=== PATIENT | male | born 1945 | race Caucasian/White ===

== ENCOUNTER 2021-07-10 23:55 | Emergency (ER) | payer BC, MEDICARE, SELFPAY ==
[2021-07-10 23:58] VITALS: BP 151/106; PULSE 80; RESP 18; TEMP 36.7; O2SAT 97
[2021-07-11] MEDS: Lidocaine 1.5 % Pres-Free W/EPI 1/200,000 30 ML VIAL (00:09)
--- NOTE | 2021-07-11 00:47 | W.ED.GENAD ---
Discharge Plan Disposition Patient Disposition: HOME Condition: Good Discharge Details Clinical Impression: Laceration of right lower leg ED Provider: Christofer Bledsoe Home Meds and New Rx's Prescriptions: New cephalexin 500 mg capsule 500 mg PO QID 7 Days Qty: 28 0RF Discharge Instructions Instructions: Laceration (ED) Additional Instructions: Please leave the dressing on and change every 12 hours, in 48 hours you may clean the wound at least twice a day with soap and water. Do not directly soak the area. Watch for any signs of infection and return if any increasing redness, swelling, pain, drainage. Please return in 7 to 10 days to have the wound reassessed for potential suture removal. Please keep the leg elevated, keep compression stockings on, and do your best to decrease any swelling or edema. Please take the antibiotic as directed. You have been given a small bottle, but also a prescription for home use to prevent infection. If you notice any worsening of your symptoms, or any new symptoms such as vomiting, diarrhea, fever, chills, shortness of breath, chest pain, numbness, weakness, or fainting , please return immediately to the emergency department for reevaluation. Please follow up with your primary care provider as soon as possible for reassessment and reevaluation. As always, it was a pleasure participating in your medical care today. Medical Decision Making This is a 76-year-old male with a past medical history of atrial fibrillation on Eliquis, diabetes mellitus, hypertension, who presents today for laceration. Patient states about an hour or so ago he hit his right leg on a piece of furniture, causing a laceration. He notes that his skin has been quite frail over the last year or so. The area was bandaged and he was brought in for further assessment. He denies any severe pain. He denies any new numbness or tingling. Bleeding was controlled at home. No fever or chills. No other complaints. The area demonstrated superficial laceration with no involvement of the deep muscle, tendon, or bone. No foreign bodies are present. The area was cleansed with chlorhexidine and copious amounts of normal saline. The area was sutured with a single horizontal mattress suture, and 11 simple interrupted sutures. Small amount of Dermabond was applied to each knot. Patient tolerated this well. Discussed the importance of keeping the leg elevated, decreasing swelling, following up closely for wound reassessment. We will give Keflex here and prescription for home to prevent infection for this diabetic leg. I have extensively reviewed the treatment plan and discharge instructions with the patient and their family. I have addressed all patient concerns at this time. The patient and family was made aware of what symptoms to monitor for that would warrant a return to the emergency department. Discussed the plan with the patient and family, they demonstrate verbal understanding and agreement with our assessment and plan at this time. The documentation in this chart was dictated using [employer] dictation software. Please excuse any dictation errors. HPI General Date/Time Provider Initiated Documentation: 07/10/21 23:57. HPI Narrative: This is a 76-year-old male with a past medical history of atrial fibrillation on Eliquis, diabetes mellitus, hypertension, who presents today for laceration. Patient states about an hour or so ago he hit his right leg on a piece of furniture, causing a laceration. He notes that his skin has been quite frail over the last year or so. The area was bandaged and he was brought in for further assessment. He denies any severe pain. He denies any new numbness or tingling. Bleeding was controlled at home. No fever or chills. No other complaints. Related Data Home Medications Medication Instructions Recorded Confirmed cephalexin 500 mg capsule 500 mg PO QID 7 days #28 caps 07/11/21 Previous Rx's Medication Instructions Recorded cephalexin 500 mg capsule 500 mg PO QID 7 days #28 caps 07/11/21 Allergies Allergy/AdvReac Type Severity Reaction Status Date / Time No Known Allergies Allergy Unverified 07/11/21 00:05 General Stated Complaint: Laceration LEYLA: 4 Review of Systems All systems reviewed & are unremarkable except as noted in HPI and below PFSH All Active Problems Laceration of right lower leg (Acute) Social History Smoking/Tobacco Use Status: Current-Occasional Tobacco Type: cigars Smoking risk assessment performed?: Yes Alcohol Intake: never Drug use: Never Substance use type: does not use Do you feel safe at home: Yes Do you feel safe in your relationship?: Yes Exam Narrative Exam Narrative: 1.Const: Well-nourished, Well-developed, appearing stated age 2.Eyes: PERRL, no conjunctival injection, and symmetrical lids. 3.ENT: Atraumatic external nose and ears. Moist MM. Neck: Symmetric, trachea midline, No thyromegaly. 4.CVS: +S1/S2, No murmurs or gallops. Peripheral pulses 2+ and equal in all extremities. Brisk capillary refill in all extremities. 5.RESP: Unlabored respiratory effort. Clear to auscultation bilaterally. No wheezes rales or rhonchi 6.GI: Soft, Nontender/Nondistended, No hepatosplenomegaly. No guarding or rebound. 7.MSK: Normocephalic, Extremities w/o deformity or ttp No cyanosis or clubbing, Normal movement of all extremities. Good plantar and dorsiflexion of the right foot and toes. Dorsalis pedis and posterior tibial pulses bilaterally. 8.Skin: Warm, Dry. Patient demonstrates an L-shaped laceration that is 7 x 4 cm. There is superficial, subcutaneous fat is exposed. No evidence of tendon ligamentous or bony injury. No foreign bodies. Mild +1 pitting edema, and chronic venous stasis staining. 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 Sensation grossly intact, no focal neurologic deficits. 10.Psych: (AAO) x3. Appropriate mood and affect Course Vital Signs Vital signs: Vital Signs Temperature 36.7 C 07/10/21 23:58 Pulse 80 07/10/21 23:58 Respiratory Rate 18 07/10/21 23:58 Blood Pressure 151/106 H 07/10/21 23:58 Pulse Oximetry 97 07/10/21 23:58 Temperature 36.7 C 07/10/21 23:58 Temperature Source Skin 07/10/21 23:58 Pulse 80 07/10/21 23:58 Respiratory Rate 18 07/10/21 23:58 Respiratory Effort 07/11/21 00:03 Blood Pressure 151/106 H 07/10/21 23:58 Blood Pressure Position Sitting 07/10/21 23:58 Pulse Oximetry 97 07/10/21 23:58 Oxygen Delivery Method Room Air 07/10/21 23:58 Oxygen Flow Rate 0 07/10/21 23:58 Pain Level 5 07/10/21 23:58 Procedures Laceration Laceration 1: Site: lower extremity Side (If applicable): right Size (cm): 12 Description: linear Depth: simple, single layer Local Anesthetic: Lidocaine 1% and with Epi Amount of anesthesia used (mL): 7 Pre-repair: wound explored, irrigated extensively and deep structures intact Skin layer closed with: nylon Size (cm): 4-0 Number of sutures: 12 Technique: simple, interrupted and horizontal mattress
[2021-07-11] MEDS: Cephalexin 500 MG CAP, 4 CAPS/BTL PO (01:04)
== END 2021-07-11 01:05 | disposition home or self-care (01) ==
PROVIDERS: Emergency Provider Student in an Organized Health Care Education/Training Program
DX: S81.811A Laceration without foreign body, right lower leg, initial encounter (principal); W22.8XXA Striking against or struck by other objects, initial encounter; I48.91 Unspecified atrial fibrillation; Z79.01 Long term (current) use of anticoagulants; E11.9 Type 2 diabetes mellitus without complications; I10 Essential (primary) hypertension
CPT/HCPCS: 12004

== ENCOUNTER 2021-08-01 11:27 | Emergency (ER) | payer BC, MEDICARE, SELFPAY ==
[2021-08-01 11:30] VITALS: BP 117/67; PULSE 88; RESP 17; TEMP 36.6; O2SAT 99
--- NOTE | 2021-08-01 12:37 | ED.GENADUL_ITS ---
Discharge Plan Disposition Patient Disposition: HOME Condition: Stable Discharge Details Clinical Impression: Wound of right leg Primary Care Provider: Cherelle,Local ED Provider: Merritt Kumar Home Meds and New Rx's Prescriptions: Continued metformin 500 mg Tablet 500 mg PO BID doxycycline hyclate 100 mg Capsule 100 mg PO DAILY atorvastatin 10 mg Tablet 10 mg PO DAILY metoprolol succinate 200 mg Tablet Extended Release 24 Hr 200 mg PO DAILY spironolactone 25 mg Tablet 12.5 mg PO DAILY tamsulosin 0.4 mg Capsule 0.4 mg PO DAILY mesalamine 1.2 gram Tablet,Delayed Release (Dr/Ec) 2.4 g PO DAILY Xarelto 20 mg Tablet 20 mg PO DAILY Rx Instructions: must administer with evening meal Jardiance 10 mg Tablet 10 mg PO DAILY Entresto 49-51 mg Tablet 1 tab PO BID Discharge Instructions Additional Instructions: The wound appears well-healing. Continue with your nonstick dressing, leave Steri-Strips in place, they will fall off on their own, you may apply over-the- counter antibiotic ointment. Rest, elevate, warm compresses every 2 hours for 20 minutes. Please watch for new or worsening symptoms and return to the ER for any concerns. Otherwise follow-up with your primary care provider on as already scheduled. Discharge Data Discharge Date/Time-TO BE ENTERED AT DEPARTURE: 08/01/21 12:49 Medical Decision Making 75-year-old gentleman sustained a laceration on 07-11, had a repaired with 10 sutures and was placed on doxycycline. He primarily lived in [place] and h ad the sutures removed there last week where they stated it was healing well and place Steri-Strips. He denies any current symptoms but just wants to be sure there are no signs of infection as it is taking quite some time to heal. He denies fever, redness, pain, swelling, drainage. Clinically he appears well, nontoxic, no signs of secondary infection. We discussed wound care in length. He is scheduled to be seen by his PCP on . Standard discharge and return precautions were provided. Patient understands, is agreeable to this plan, and has no additional questions or concerns upon discharge. This documentation was generated using [employer] system, please disregard any oddities of phrase or misspellings. Medical Records Medical records reviewed: Yes I reviewed the patient's medical records. HPI General Mode of arrival: ambulatory . Date/Time Provider Initiated Documentation: 08/01/21 12:01 . Limitations to Documentation: no limitations . Information obtained by: patient and family . History of Present Illness 75 year old M presents to the emergency department with the chief complaint of R leg wound check, described as mild, with intensity rated at 1. Quality is described as other (no pain), and is localized to the right and lower extremity. Patient reports no radiation. Patient started experiencing this day(s) (21) and it has been other (improving). No relieving factors improve symptom(s), No exacerbating factors reported . Patient notes no other symptoms.. Patient did receive the following treatments prior to arrival, none Related Data Home Medications Medication Instructions Recorded Confirmed atorvastatin 10 mg tablet 10 mg PO DAILY 08/01/21 08/01/21 doxycycline hyclate 100 mg capsule 100 mg PO DAILY 08/01/21 08/01/21 empagliflozin 10 mg tablet 10 mg PO DAILY 08/01/21 08/01/21 (Jardiance) mesalamine 1.2 gram tablet,delayed 2.4 g PO DAILY 08/01/21 08/01/21 release metformin 500 mg tablet 500 mg PO BID 08/01/21 08/01/21 metoprolol succinate 200 mg 200 mg PO DAILY 08/01/21 08/01/21 tablet,extended release 24 hr rivaroxaban 20 mg tablet (Xarelto) 20 mg PO DAILY 08/01/21 08/01/21 sacubitril 49 mg-valsartan 51 mg 1 tab PO BID 08/01/21 08/01/21 tablet (Entresto) spironolactone 25 mg tablet 12.5 mg PO DAILY 08/01/21 08/01/21 tamsulosin 0.4 mg capsule 0.4 mg PO DAILY 08/01/21 08/01/21 Allergies Allergy/AdvReac Type Severity Reaction Status Date / Time No Known Allergies Allergy Unverified 08/01/21 11:37 General Stated Complaint: RashLesion LEYLA: 4 Review of Systems Constitutional Constitutional: Denies fever(s) and Denies weakness Musculoskeletal Musculoskeletal: Denies arthralgias, Denies numbness and Denies tingling Integumentary/Breasts Skin/Breast: Denies erythema Neurologic Neurologic: Denies numbness, Denies tingling and Denies weakness Hematologic/Lymphatic Hematologic/Lymphatic: Reports easy bleeding and Reports easy bruising PFSH All Active Problems Wound of right leg (Acute) Social History Smoking/Tobacco Use Status: Current-Occasional Tobacco Type: cigars Smoking risk assessment performed?: Yes Alcohol Intake: current Alcohol Intake frequency: a few times a month Drug use: Never Substance use type: does not use Do you feel safe at home: Yes Do you feel safe in your relationship?: Yes Exam Const General: cooperative, healthy appearing, comfortable and no acute distress Orientation: alert and awake HENDE Head: normal to inspection, normocephalic and atraumatic Eyes Conjunctivae: conjunctivae normal Neck Neck: normal visual inspection, full ROM, trachea midline and supple Resp Effort & Inspection: normal respiratory effort and able to speak in complete sentences Cardio Rate: regular rate Rhythm: regular rhythm Skin General skin exam: no rashes or lesions noted Neuro General: patient alert, patient awake, moves all extremities and no focal motor deficits Cognition: normal cognition Speech: speech normal Gait: normal gait Motor: muscle tone normal throughout Sensory Exam: no sensory deficits noted Extrem Other: Bilateral lower extremities with mild hyperpigmentation and 1+ pitting edema, patient reports this is baseline. Along his right lower leg, anterior-lateral aspect there is a well-healing wound, Steri-Strips in place. There is no tenderness, erythema, warmth, drainage, induration or fluctuance. Normal capil charlene refill and pedal pulse. Psych Appearance: grossly normal Mental Status: mental status grossly normal Course Vital Signs Vital signs: Vital Signs Temperature 36.6 C 08/01/21 11:30 Pulse 88 08/01/21 11:30 Respiratory Rate 17 08/01/21 11:30 Blood Pressure 117/67 08/01/21 11:30 Pulse Oximetry 99 08/01/21 11:30 Temperature 36.6 C 08/01/21 11:30 Pulse 88 08/01/21 11:30 Respiratory Rate 17 08/01/21 11:30 Respiratory Effort Non-Labored 08/01/21 11:34 Blood Pressure 117/67 08/01/21 11:30 Blood Pressure Position Sitting 08/01/21 11:30 Pulse Oximetry 99 08/01/21 11:30 Oxygen Delivery Method Room Air 08/01/21 11:30 Oxygen Flow Rate 0 08/01/21 11:30 Pain Level 0 08/01/21 11:30 PAWSS Have you Been Recently Intoxicated or Drunk Within the Last 30 days?: No Have you Ever Experienced Previous Episodes of Alcohol Withdrawal?: No Have you ever Experienced Withdrawal Seizures?: No Have you ever Experienced Delirium Tremens(DT)s?: No Have you ever undergone Alcohol Rehabilitation Treatment (i.e, inpt ot outpatient treatment programs)?: No Have you ever Experienced Blackouts?: No Have you ever Combined Alcohol with other Downers within the last 90 days?: No Have you ever Combined Alcohol with any other Substance of Abuse during the last 90 days?: No Result: 0
== END 2021-08-01 12:49 | disposition home or self-care (01) ==
PROVIDERS: Emergency Provider Physician Assistant
DX: S81.811A Laceration without foreign body, right lower leg, initial encounter (principal); X58.XXXA Exposure to other specified factors, initial encounter
CPT/HCPCS: 99282